=== PATIENT | female | born 1930 | race Caucasian/White ===

== ENCOUNTER 2017-05-06 05:49 | Inpatient (IN) | payer MEDICARE, OTHER ==
[2017-05-05 10:00] VITALS: BMI 20.3
--- NOTE | 2017-05-06 06:05 | HP ---
HISTORY OF PRESENT ILLNESS: Ms. Razo is an 86-year-old female that presents with low back pain and radicular pain in the right leg that travels to the heel and bottom of foot. The pain in the leg has been going on for the past year. The pain has been worse with lifting and walking, and has been made somewhat better with bending forward and sitting down as well as taking gabapentin and analgesics. She can only walk about a block and then the pain in the leg becomes too bad to continue walking. At that point, she needs to sit down to relieve the pain. She has had epidural steroid injections last year in [facility] and has completed physical therapy within the past year. She has a history of lumbar laminectomy in [address] Roach at [facility]. IMAGING: MRI of the lumbar spine from [facility]. REVIEW OF SYSTEMS: Ten-point review of systems completed, is otherwise negative unless stated in the above HPI. PAST MEDICAL HISTORY: Back pain. PAST SURGICAL HISTORY: Cervical pain in 2008, lumbar laminectomy in 2006, vascular surgery in 2006, right knee replaced in 2012. HOSPITALIZATIONS: For sciatica in 2017. FAMILY HISTORY: Noncontributory. SOCIAL HISTORY: The patient is a nonsmoker. She is retired, has 4 children, and she is . MEDICATIONS: Taking amlodipine, carvedilol, atorvastatin, calcium, losartan, potassium, Ecotrin, low-strength aspirin, tramadol, gabapentin, acetaminophen, lidocaine. ALLERGIES: No known drug allergies. PHYSICAL EXAMINATION: HEENT: Normocephalic, atraumatic. Hearing intact. Moist mucous membranes. Trachea is midline. EYES: Pupils are equal and reactive to light. Extraocular muscles are intact. Sclerae are white, nonicteric. PSYCHIATRIC: Normal mood and affect. CARDIOVASCULAR/PULMONARY: No cyanosis or clubbing noted. Intact pedal pulses bilaterally. RESPIRATORY: Even respirations, good effort. All lung zamora sound clear with no wheezing or crackles. MUSCULOSKELETAL: 5/5 strength in bilateral iliopsoas, quadriceps, hamstrings, right tibialis, anterior and extensor hallucis longus. Sensory deficit in the right L5 and S1 dermatome. Tender to palpation on the midline lumbar spine. NEUROLOGIC: Gait and station are normal. Motor exam: No new weakness. Sensory exam: No new loss of sensation. Cranial nerves II-XII are grossly intact. Speech is fluent. She answers my questions appropriately. IMAGING: Flexion and extension x-rays showed the L3-L4 grade II slip does not have changed much. The L2-L3 retrolisthesis accentuates on extension and reduces in flexion. MRI of the lumbar spine shows stenosis at L2-L3 and L3-L4, prior surgery at L5 scoliosis. ASSESSMENT: 1. Neurogenic claudication due to lumbar spinal stenosis. 2. Spondylolisthesis in the lumbar region. 3. Prior surgery at L5, S1 radiculopathy on the right, listhesis with severe stenosis at L2-L3 and L3-L4, mobile at L2-L3. PLAN: The patient is unwilling to continue life in this manner of pain, she is a 86-year-old. She opted for neurosurgical intervention. Informed consent was given and we discussed the indications, risks, benefits, and possible complications of surgery. Risks included, but were not limited to bleeding, infection, CSF leak, nerve damage, weakness, cauda equina injury, incontinence, arachnoiditis, paralysis, ventilator dependence, wheelchair dependence, loss of vision, hardware misplacement, cardiopulmonary complications with anesthesia, or . Long-term complications were discussed included, but were not limited to degeneration of the surrounding disk and future surgery. She understands the risk and is willing to proceed with the surgery. The patient will likely need rehab after admission. Surgery offered is L2-L4 laminectomy and TLIF. DEA
[2017-05-06] MEDS ORDERED: Thrombin 5000 UNITS/5 ML VIAL ONE ×2 (06:24)
[2017-05-06] MEDS ORDERED: Bupivacaine HCl 0.5%/Epinephrine 1:200,000/PF 30 ml Vial ONE (06:24)
[2017-05-06] MEDS ORDERED: Sodium Chloride 0.9% 20 ML ONE ×2 (06:24→12:04)
[2017-05-06] MEDS ORDERED: CEFAZOLIN/Water 2 GM/20 ML SYRINGE ONE (06:30)
[2017-05-06 06:34] LABS: Hemoglobin 14.1 g/dL (12.0-16.0); Mean Corpuscular HGB CONC 34.3 g/dL (32.0-36.0); Mean Corpuscular Hemoglobin 31.9 pg (27.0-31.0); Mean Corpuscular Volume 93.1 fl (81.0-99.0); Mean Platelet Volume 6.9 fL (7.4-10.4); Platelet Count 258 thou/uL (130-400); RBC Distribution Width 11.9 % (11.5-14.5); Red Blood Cell (RBC) Count 4.41 mill/uL (4.20-5.40); White Blood Cell (WBC) Count 8.1 thou/uL (4.8-10.8)
[2017-05-06 06:42] LABS: PTT 28.4 SEC (22.9-36.1)
[2017-05-06] MEDS ORDERED: Albumin 5% 500 ML ONE (07:01)
[2017-05-06] MEDS ORDERED: Phenylephrine HCL 10 MG/ML VIAL ONE (07:01)
[2017-05-06] MEDS ORDERED: Fentanyl 250 MCG/5 ML VIAL ONE ×2 (07:04→15:28)
[2017-05-06] MEDS ORDERED: HYDROmorphone 0.5 MG/0.5 ML SYRINGE ONE (13:13)
[2017-05-06] MEDS ORDERED: Morphine Sulfate 2 MG/ML SYRINGE SLOW IVP PRN (13:18)
[2017-05-06] MEDS ORDERED: Promethazine HCl 25 MG/ML VIAL SLOW IVP PRN (13:18)
[2017-05-06] MEDS ORDERED: Ondansetron HCl/PF 4 MG/2 ML Vial IVP PRN ×2 (13:18→14:28)
[2017-05-06] MEDS ORDERED: Meperidine HCl/PF 25 MG/ML VIAL SLOW IVP PRN (13:18)
[2017-05-06] MEDS ORDERED: HYDROmorphone 2 MG/ML VIAL SLOW IVP PRN (13:18)
[2017-05-06] MEDS ORDERED: Promethazine HCl 25 MG/ML VIAL IM PRN (13:18)
[2017-05-06] MEDS ORDERED: Acetaminophen/Codeine 30-300mg Tablet PO PRN (14:28)
[2017-05-06] MEDS ORDERED: tiZANidine HCl 4 MG TAB PO PRN (14:28)
[2017-05-06] MEDS ORDERED: Morphine 2 MG/ML SYRINGE SLOW IVP PRN (14:28)
[2017-05-06] MEDS ORDERED: Polyethylene Glycol 3350 17 GM Packet PO PRN (14:31)
[2017-05-06] MEDS ORDERED: Docusate 100 MG CAP PO PRN (14:35)
[2017-05-06] MEDS ORDERED: Metoclopramide HCl 10 MG/2 ML VIAL ONE ×2 (14:41→17:28)
[2017-05-06] MEDS ORDERED: CEFAZOLIN/Water 2 GM/20 ML SYRINGE SLOW IVP SCH (15:00)
--- NOTE | 2017-05-06 15:54 | OP ---
DATE OF PROCEDURE: 05/06/2017 SURGEON: Jillian Menon M.D. CHECK SERVICES CLERK: Taco Jaimes PA-C. PREOPERATIVE INDICATION: Treat pain, prevent neurological deterioration. PREOPERATIVE DIAGNOSES: Unstable spondylolisthesis L2-3, grade 2 spondylolisthesis L3-4, multilevel lumbar restenosis after previous surgery L2-3, L3-4, L4-L5, and neurogenic claudication. POSTOPERATIVE DIAGNOSES: Unstable spondylolisthesis L2-3, grade 2 spondylolisthesis L3-4, multilevel lumbar restenosis after previous surgery L2-3, L3-4, L4-L5, and neurogenic claudication. OPERATIVE PROCEDURE: Reopening lumbar incision, decompressive laminectomy, medial facetectomy, mary inotomy L2-L3, redo decompression bilateral L3-4 and L4-5, repair of multiple durotomies, pedicle scr ew and parker instrumentation L2-L4, posterolateral arthrodesis L2-L4, operating microscope, local zazueta lized autograft, morselized allograft. PREOPERATIVE MEDICATION: Ancef 2 grams IV. DRAIN NUMBER: Zero. DRAIN TYPE: None. OPERATIVE DICTATION: The patient was brought to the operating room. General endotracheal anesthesia was induced. The patient was positioned prone on the Joao frame and a lateral fluoro radiograph was used to confirm that previous incision would give us access from L2-S1. The lumbar skin was ster ilely prepped and draped. We opened with a 10-blade knife and controlled bleeding with bipolar and m onopolar cautery. We used monopolar cautery to dissect through subcutaneous tissues to thoracodorsal fascia. We incised the fascia in the midline and reflected the paraspinal muscles off the spinous p rocess and lamina of L2 with L3 and L4. We dissected through scar tissue laterally to the pars inter articularis and over the facet joints at L3-4, L4-5 and the same dissection technique was used down t he pars to the L5-S1 facet joint. A lateral fluoro radiograph confirmed the levels upon which we wer e operating. We placed self-retaining retractors. We dissected over the facet joints at L1-L2, L2-3 , and L3-4 to identify the transverse processes of L2, L3, and L4. Using an Adson rongeur, we remove d the spinous process of L2. We used Kerrison rongeur to fashion a laminectomy at L2 and we widened the laminectomy defect with L2-3 facet joints until we were flushed with the L3 pedicles. Dissected through scar tissue to identify the pars and articularis of L3, L4, and L5 bilaterally. We undermine d the pars with the angled curette. At L3-4 on the right side, there was a significant amount of sca r tissue and fatty tissue densely adherent to the dura, so it was used as a dural patch by the previo us surgeon. With mobilizing the dura off the lateral confines of the spinal canal, an opening of the dura was encountered on the right at L3-4, this is a complex opening owing to a previous patch closu re. The operative microscope was brought into the field. Under microscopic navigation using microsurgical techniques, we used 6-0 Prolene to reapproximate the dura and reinforced that closure with pledget of muscle. Continued our dissection until we were jc und the lateral aspect of the dura at the L3, L4, and L5 segments. We performed small foraminotomies over the exiting L3, L4, and L5 and made sure they were well decompressed. The spine had a lateral listhesis at L3-4 and there was a significant scoliotic curve as well. Under the operating microscop e, we found multiple smaller dural openings that needed repair with 6-0 Prolene, and due to the fragi lity of her dura and 86 years old, we elected to forego interbody grafting due to the tension we woul d have to put on the dura to get the interbodies in place. We removed the operating microscope. Usi ng bony anatomic landmarks, palpation of the medial portion of the pedicles, and a lateral fluoro rad iograph as a guide, we chose entry points for pedicle screws at L2, L3, and L4. We drilled the executive pilot holes with a high-speed drill and using a bone all advanced through the pedicles into the vertebral body. We tapped the trajectories and then probed them with a micro-ball probe. They were completely encased in bone. We placed 6.5 mm diameter pedicle screws at L2, L3, and L4 bilaterally. We genera andree a 360-degree image set using our isocentric C-arm confirming adequate position of the pedicle scr ew instrumentation. We then brought rods into the heads of the screws and tightened caps over the ro ds using a [id number] mechanism; we ensured adequate tightness. We irrigated copious with bacitracin irrigation. We decorticated the transverse processes from L2-L4 bilaterally, and over th e decorticated bone, we left demineralized bone matrix and morselized autograft as our posterolateral fusion substrate. The autograft was obtained from our laminectomy bone, which was cleaned of their soft tissue attachments on the back table, morselized into DBM as our fusion substrate. We turned ou r attention to the dura once again. We inspected for any further CSF egress. It is a small amount i n the stitch holes. We created and there is no way to combat the fragility of the dura other than us ing a DuraSeal tissue sealants. A 25 mL syringes of DuraSeal tissue sealant was applied to all of th e decompressed area, especially where there were openings had been repaired. This was done after irr igating with bacitracin irrigation. Vancomycin powder was used to treat the wound, and we closed the wound in anatomic layers. This is a clean case, no contamination and much longer and arduous than t he average decompression fusion.
[2017-05-06] MEDS: Sodium Chloride 0.9% 1,000 ML IV SCH (16:41)
[2017-05-06] MEDS: Gabapentin 100 MG CAP PO SCH ×2 (16:42→20:15)
[2017-05-06] MEDS ORDERED: Melatonin 3 MG TAB PO PRN (16:49)
[2017-05-06] MEDS ORDERED: CEFAZOLIN 1 GM VIAL ONE (17:28)
[2017-05-06] MEDS ORDERED: PHENYLEPHRINE-NS 100 MCG/ML 10 ML SYRINGE ONE (17:28)
[2017-05-06] MEDS ORDERED: Ondansetron HCl/PF 4 MG/2 ML Vial ONE (17:28)
[2017-05-06] MEDS ORDERED: Labetalol 100 MG/20 ML MDV ONE (17:28)
[2017-05-06] MEDS ORDERED: Lidocaine 1% PF 5 ML VIAL ONE (17:28)
[2017-05-06] MEDS ORDERED: Propofol 200 MG/20 ML VIAL ONE (17:28)
[2017-05-06] MEDS ORDERED: Glycopyrrolate 0.2 MG/ML 5 ML SYRINGE ONE (17:28)
[2017-05-06] MEDS ORDERED: Sterile Water 10 ML VIAL ONE (17:28)
--- NOTE | 2017-05-06 17:41 | PDOC.PN ---
- Subjective Encounter Start Date: 05/06/17 Encounter Start Time: 17:00 Subjective: no trouble breathing or chest pain -: is hungry, waiting for food to arrive -: is moving all extremities - Objective MAR Reviewed: Yes Vital Signs & Weight: Vital Signs (12 hours) Temp Pulse Resp BP Pulse Ox 05/06/17 16:20 97.5 F L 75 18 180/65 H 99 05/06/17 16:00 97.5 F L 75 18 99 Weight Weight 130 lb Result Diagrams: 05/06/17 06:25 Phys Exam - Physical Examination HEENT: PERRLA, moist MMs Neck: no JVD, supple Respiratory: no wheezing, no rales Cardiovascular: RRR, no significant murmur Gastrointestinal: soft, non-tender, no distention, positive bowel sounds Musculoskeletal: no edema, pulses present Neurological: non-focal, moves all 4 limbs Psychiatric: A&O x 3 Dx/Plan (1) S/P laminectomy Code(s): Z98.890 - OTHER SPECIFIED POSTPROCEDURAL STATES Status: Acute Comment: had decompressive lami with foraminotomy of L2-3, L3-4 with dural repair 05/06/17 (2) HTN (hypertension) Code(s): I10 - ESSENTIAL (PRIMARY) HYPERTENSION Status: Chronic Qualifiers: Hypertension type: essential hypertension Qualified Code(s): I10 - Essential (primary) hypertension (3) Dyslipidemia Code(s): E78.5 - HYPERLIPIDEMIA, UNSPECIFIED Status: Chronic - Plan continue coreg, norvasc and cozaar for now -: dc hctz, is on iv fluids -: is fully oriented post op, unlikely to develop post op delerium/dementia -: PT per NSX, rehab for dc plan -: for pain: morphine, tylenol#3, ultram and tizanidine prn * . Review of Systems - Medications/Allergies Allergies/Adverse Reactions: Allergies Allergy/AdvReac Type Severity Reaction Status Date / Time No Known Allergies Allergy Unverified 05/05/17 09:26 Medications: Current Medications Acetaminophen/Codeine Phosphate (Tylenol #3) 1 tab PO Q3H PRN PRN Reason: Mild Pain (1-3) Acetaminophen/Codeine Phosphate (Tylenol #3) 2 tab PO Q3H PRN PRN Reason: Moderate Pain (4-6) Amlodipine Besylate (Norvasc) 5 mg PO DAILY [facility] Atorvastatin Calcium (Lipitor) 10 mg PO Q3DAYS [facility] Carvedilol (Coreg) 12.5 mg PO BID [facility] Cefazolin Sodium (Ancef) 2 gm SLOW IVP 0400,1200,2000 [facility] Stop: 05/07/17 04:01 Docusate Sodium (Colace) 100 mg PO BIDPRN PRN PRN Reason: Constipation Gabapentin (Neurontin) 300 mg PO HS [facility] Gabapentin (Neurontin) 100 mg PO TID [facility] Last Admin: 05/06/17 16:42 Dose: Not Given Hydrochlorothiazide (Hydrochlorothiazide) 12.5 mg PO QAM [facility] Sodium Chloride (Normal Saline 0.9%) 1,000 mls @ 75 mls/hr IV .[id number] [facility] Last Admin: 05/06/17 16:41 Dose: Not Given Losartan Potassium (Cozaar) 100 mg PO DAILY [facility] Magnesium Oxide (Magnesium Oxide) 400 mg PO DAILY [facility] Melatonin (Melatonin) 9 mg PO HS PRN PRN Reason: Sedation Morphine Sulfate (Morphine) 2 mg SLOW IVP Q1H PRN PRN Reason: Moderate Breakthrough Pain Morphine Sulfate (Morphine Sulfate) 4 mg SLOW IVP Q1H PRN PRN Reason: Severe Breakthrough Pain Ondansetron HCl (Zofran) 4 mg IVP Q6H PRN PRN Reason: Nausea Polyethylene Glycol (Miralax) 17 gm PO DAILYPRN PRN PRN Reason: Constipation Sodium Chloride (Flush - Normal Saline) 10 ml IVF PRN PRN PRN Reason: Saline Flush Tizanidine HCl (Zanaflex) 4 mg PO Q6H PRN PRN Reason: Muscle Spasm Tramadol HCl (Ultram) 50 mg PO QID [facility]
[2017-05-06] MEDS: traMADol HCl 50 MG TAB PO SCH ×2 (18:04→20:16)
[2017-05-06] MEDS: CEFAZOLIN/Water 2 GM/20 ML SYRINGE SLOW IVP SCH (20:14)
[2017-05-06] MEDS: Carvedilol 6.25 MG TAB PO SCH (20:15)
[2017-05-06] MEDS: Gabapentin 300 MG CAP PO SCH (20:15)
[2017-05-06] MEDS: Acetaminophen/Codeine 30-300mg Tablet PO PRN (20:15)
[2017-05-07] MEDS: Acetaminophen/Codeine 30-300mg Tablet PO PRN ×2 (03:15→17:15)
[2017-05-07] MEDS: Sodium Chloride 0.9% 1,000 ML IV SCH (04:01)
[2017-05-07] MEDS: CEFAZOLIN/Water 2 GM/20 ML SYRINGE SLOW IVP SCH (04:59)
[2017-05-07 05:54] LABS: #Lymphocytes 1.1 thou/uL (1.20-3.40); #Monocytes 0.8 thou/uL (0.11-0.59); #Neutrophils 4.2 thou/uL (1.40-6.50); %Basophils 0.2 % (0.0-1.0); %Eosinophils 0.2 % (0.0-10.0); %Lymphocytes 17.5 % (21.0-51.0); %Monocytes 12.6 % (0.0-10.0); %Neutrophils 69.5 % (42.0-75.0); Hemoglobin 7.8 g/dL (12.0-16.0); Mean Corpuscular HGB CONC 33.1 g/dL (32.0-36.0); Mean Corpuscular Hemoglobin 32.1 pg (27.0-31.0); Mean Corpuscular Volume 96.9 fl (81.0-99.0); Mean Platelet Volume 7.5 fL (7.4-10.4); Platelet Count 167 thou/uL (130-400); RBC Distribution Width 11.8 % (11.5-14.5); Red Blood Cell (RBC) Count 2.44 mill/uL (4.20-5.40)
[2017-05-07] MEDS ORDERED: Acetaminophen 325 MG TAB PO PRN (07:15)
[2017-05-07] MEDS ORDERED: Loperamide HCl 2 MG CAP PO PRN (07:15)
[2017-05-07] MEDS ORDERED: Diabetic Tussin 200 MG/10 ML UDCUP PO PRN (07:15)
[2017-05-07] MEDS ORDERED: Sodium Chloride 0.65% Nasal 44 ML BOT EA NARE PRN (07:15)
[2017-05-07] MEDS ORDERED: Eucerin (Mineral Oil/Petrolatum,White) 30 gm Jar TOP PRN (07:15)
[2017-05-07] MEDS ORDERED: Zolpidem Tartrate 5 MG TAB PO PRN (07:15)
[2017-05-07] MEDS ORDERED: Bisacodyl 10 MG SUPP PR PRN (07:15)
[2017-05-07] MEDS ORDERED: Chloraseptic Spray 180 ml Bottle PO PRN (07:15)
[2017-05-07] MEDS ORDERED: hydrALAZINE 20 MG/ML VIAL SLOW IVP PRN (07:15)
[2017-05-07] MEDS ORDERED: Mag-Al 1200 mg/1200 mg/30 ML UDCUP PO PRN (07:15)
[2017-05-07] MEDS ORDERED: Artificial Tears 18 DROP/0.9 ML EA EYE PRN (07:15)
[2017-05-07] MEDS ORDERED: Milk Of Magnesia 30 ML UDCUP PO PRN (07:15)
[2017-05-07] MEDS ORDERED: Ondansetron ODT 4 MG TAB PO PRN (07:15)
[2017-05-07] MEDS ORDERED: Loratadine 10 MG TAB PO PRN (07:15)
[2017-05-07 08:04] LABS: Hemoglobin 7.7 g/dL (12.0-16.0)
[2017-05-07] MEDS: traMADol HCl 50 MG TAB PO SCH ×4 (08:50→20:46)
[2017-05-07] MEDS: Carvedilol 6.25 MG TAB PO SCH ×2 (08:50→20:44)
[2017-05-07] MEDS: Magnesium Oxide 400 MG TAB PO SCH (08:54)
[2017-05-07] MEDS: Famotidine 20 MG TAB PO SCH ×2 (08:54→20:45)
[2017-05-07] MEDS: Gabapentin 100 MG CAP PO SCH ×3 (08:55→20:38)
[2017-05-07] MEDS: Losartan 25 MG TAB PO SCH (08:57)
[2017-05-07] MEDS ORDERED: Amlodipine 5 MG TAB PO SCH ×2 (09:00→21:00)
[2017-05-07] MEDS ORDERED: Hydrochlorothiazide 25 MG TAB PO SCH (09:00)
--- NOTE | 2017-05-07 09:20 | PDOC.PN ---
- Subjective Encounter Start Date: 05/07/17 Encounter Start Time: 08:00 -: old records requested/rev Patient seen and examined. No new complaints. No overnight events has chronic low back pain no constipation no fever - Objective Resuscitation Status: Resuscitation Status FULL:Full Resuscitation MAR Reviewed: Yes Vital Signs & Weight: Vital Signs (12 hours) Temp Pulse Resp BP BP Pulse Ox 05/07/17 08:53 80 148/66 H 05/07/17 08:50 148/66 H 05/07/17 08:23 98.8 F 80 16 148/66 H 96 05/07/17 04:00 97.6 F 81 18 122/46 L 98 Weight Weight 130 lb I&O: 05/06/17 05/07/17 05/08/17 06:59 06:59 06:59 Intake Total 1775 Output Total 1500 Balance 275 Result Diagrams: 05/07/17 07:33 Phys Exam - Physical Examination Constitutional: NAD HEENT: PERRLA, moist MMs, sclera anicteric, oral pharynx no lesions Neck: no nodes, no JVD, supple, full ROM Respiratory: no wheezing, no rales, no rhonchi Cardiovascular: RRR, no significant murmur, no rub Gastrointestinal: soft, non-tender, no distention, positive bowel sounds Musculoskeletal: no edema, pulses present Neurological: non-focal, normal sensation, moves all 4 limbs Lymphatic: no nodes Psychiatric: normal affect, A&O x 3 Skin: no rash, normal turgor Dx/Plan (1) Lumbar stenosis with neurogenic claudication Code(s): M48.062 - SPINAL STENOSIS, LUMBAR REGION WITH NEUROGENIC CLAUDICATION Status: Acute (2) S/P laminectomy Code(s): Z98.890 - OTHER SPECIFIED POSTPROCEDURAL STATES Status: Acute Comment: had decompressive lami with foraminotomy of L2-3, L3-4 with dural repair 05/06/17 (3) Chronic low back pain Code(s): M54.5 - LOW BACK PAIN; G89.29 - OTHER CHRONIC PAIN Status: Chronic (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 Code(s): M47.816 - SPONDYLOSIS W/O MYELOPATHY OR RADICULOPATHY, LUMBAR REGION Status: Chronic Qualifiers: Spinal osteoarthritis complication: with radiculopathy Qualified Code(s): M47.26 - Other spondylosis with radiculopathy, lumbar region (5) Dyslipidemia Code(s): E78.5 - HYPERLIPIDEMIA, UNSPECIFIED Status: Chronic (6) HTN (hypertension) Code(s): I10 - ESSENTIAL (PRIMARY) HYPERTENSION Status: Chronic Qualifiers: Hypertension type: essential hypertension Qualified Code(s): I10 - Essential (primary) hypertension - Plan cont current plan of care, plan discussed w/ family, PT/OT, pediatric social worker * continue PT/OT * will need rehab placement when surgically cleared * Her Hb most likely in 7- 8 range * doubt pt has any post surgical blood loss * on admission may be Hb result is false high * she does not have any bleeding from any site per pt * medication reviewed as below * symptomatic treatment * discussed with daughter * code status- full and daughter is decision maker. Review of Systems - Review of Systems Constitutional: negative: fever, chills, sweats, weakness, malaise, other Eyes: negative: Pain, Vision Change, Conjunctivae Inflammation, Eyelid Inflammation, Redness, Other ENT: negative: Ear Pain, Ear Discharge, Nose Pain, Nose Discharge, Nose Congestion, Mouth Pain, Mouth Swelling, Throat Pain, Throat Swelling, Other Respiratory: negative: Cough, Dry, Shortness of Breath, Hemoptysis, SOB with Excertion, Pleuritic Pain, Sputum, Wheezing Cardiovascular: negative: chest pain, palpitations, orthopnea, paroxysmal nocturnal dyspnea, edema, light headedness, other Gastrointestinal: negative: Nausea, Vomiting, Abdominal Pain, Diarrhea, Constipation, Melena, Hematochezia, Other Genitourinary: negative: Dysuria, Frequency, Incontinence, Hematuria, Retention , Other Musculoskeletal: Back Pain. negative: Neck Pain, Shoulder Pain, Arm Pain, Hand Pain, Leg Pain, Foot Pain, Other Skin: negative: Rash, Lesions, Wes, Bruising, Other - Medications/Allergies Allergies/Adverse Reactions: Allergies Allergy/AdvReac Type Severity Reaction Status Date / Time No Known Allergies Allergy Unverified 05/05/17 09:26 Medications: Current Medications Acetaminophen (Tylenol) 650 mg PO Q4H PRN PRN Reason: Headache/Fever or Mild Pain Acetaminophen/Codeine Phosphate (Tylenol #3) 1 tab PO Q3H PRN PRN Reason: Mild Pain (1-3) Last Admin: 05/07/17 03:15 Dose: 1 tab Acetaminophen/Codeine Phosphate (Tylenol #3) 2 tab PO Q3H PRN PRN Reason: Moderate Pain (4-6) Al Hydroxide/Mg Hydroxide (Maalox) 15 ml PO Q4H PRN PRN Reason: Heartburn or Indigestion Amlodipine Besylate (Norvasc) 5 mg PO DAILY [facility] Last Admin: 05/07/17 08:53 Dose: Not Given Artificial Tears (Tears Naturale) 0 drop EA EYE PRN PRN PRN Reason: Dry Eyes Atorvastatin Calcium (Lipitor) 10 mg PO Q3DAYS [facility] Bisacodyl (Dulcolax) 10 mg AK DAILYPRN PRN PRN Reason: Constipation Carvedilol (Coreg) 12.5 mg PO BID [facility] Last Admin: 05/07/17 08:50 Dose: 12.5 mg Docusate Sodium (Colace) 100 mg PO BIDPRN PRN PRN Reason: Constipation Famotidine (Pepcid) 20 mg PO BID [facility] Last Admin: 05/07/17 08:54 Dose: 20 mg Gabapentin (Neurontin) 300 mg PO HS [facility] Last Admin: 05/06/17 20:15 Dose: 300 mg Gabapentin (Neurontin) 100 mg PO TID [facility] Last Admin: 05/07/17 08:55 Dose: 100 mg Guaifenesin (Robitussin Sf) 200 mg PO Q4H PRN PRN Reason: Cough Hydralazine HCl (Apresoline) 10 mg SLOW IVP Q4H PRN PRN Reason: Systolic BP > 180 Loperamide HCl (Imodium) 2 mg PO PRN PRN PRN Reason: Diarrhea/Loose Stools Loratadine (Claritin) 10 mg PO DAILYPRN PRN PRN Reason: Sinus Symptoms Losartan Potassium (Cozaar) 100 mg PO DAILY [facility] Last Admin: 05/07/17 08:57 Dose: 100 mg Magnesium Hydroxide (Milk Of Magnesium) 30 ml PO DAILYPRN PRN PRN Reason: Constipation Magnesium Oxide (Magnesium Oxide) 400 mg PO DAILY [facility] Last Admin: 05/07/17 08:54 Dose: 400 mg Melatonin (Melatonin) 9 mg PO HS PRN PRN Reason: Sedation Mineral Oil/White Petrolatum (Eucerin Cream) 0 gm TOP BIDPRN PRN PRN Reason: Dry Skin Morphine Sulfate (Morphine) 2 mg SLOW IVP Q1H PRN PRN Reason: Moderate Breakthrough Pain Morphine Sulfate (Morphine Sulfate) 4 mg SLOW IVP Q1H PRN PRN Reason: Severe Breakthrough Pain Ondansetron HCl (Zofran) 4 mg IVP Q6H PRN PRN Reason: Nausea Ondansetron HCl (Zofran Odt) 4 mg PO Q6H PRN PRN Reason: Nausea/Vomiting Phenol (Chloraseptic [place] 180 Ml Bot) 0 ml PO PRN PRN PRN Reason: Sore Throat Polyethylene Glycol (Miralax) 17 gm PO DAILYPRN PRN PRN Reason: Constipation Sodium Chloride (Flush - Normal Saline) 10 ml IVF PRN PRN PRN Reason: Saline Flush Last Admin: 05/06/17 20:14 Dose: 10 ml Sodium Chloride (Imperial Nasal [place] 0.65%) 0 ml EA NARE QIDPRN PRN PRN Reason: Nasal Congestion Tizanidine HCl (Zanaflex) 4 mg PO Q6H PRN PRN Reason: Muscle Spasm Last Admin: 05/06/17 20:14 Dose: 4 mg Tramadol HCl (Ultram) 50 mg PO QID [facility] Last Admin: 05/07/17 08:50 Dose: 50 mg Zolpidem Tartrate (Ambien) 5 mg PO HSPRN PRN PRN Reason: Insomnia
--- NOTE | 2017-05-07 10:41 | PRG ---
DATE OF SERVICE: 05/07/2017 Ms. Razo is 1 day out from lumbar decompression and fusion. Her surgery was extremely arduous. H er 86-year-old dura had the consistency of tissue paper. There were multiple durotomies that needed repair. It seemed as though at C3-4 she had a previous graft repair of her dura during her original operation and that needed to be repaired once again as well. Nerves within the thecal sac was scarr ed in from her degenerative spine disease and the previous surgery and they had to be freed microscop ically. Overnight, Ms. Razo has been flat in bed. She says the pain in her right leg is better than it wa s before surgery. Her back pain is not any worse than what she had prior to her operation and she is pleased that she had it. On examination, there is good neurological function in lower extremities. We will gradually raise th e head of bed today. By this afternoon, she can stand with the assistance of Physical Therapy. She may benefit from inpatient rehabilitation.
--- NOTE | 2017-05-07 11:04 | PRG ---
DATE OF SERVICE: 05/07/2017 Ms. Razo is an 86-year-old female, who is status post 1 day from an L2-L4 laminectomy and TLIF. T jaky, she has a lumbar brace in her room and she has been able to get up to the bathroom. We will gavin ve physical therapy work with her today and occupational therapy to get her walking in her room and i n the mohan. I have put in consults for case management to consider a rehab screening. This patient will likely need some inpatient rehab post hospitalization. This morning, her laboratory count, hemo globin was 7.7. Her vital signs overnight were stable. She is slightly hypertensive at 148/66. She is afebrile and she has been able to tolerate a regular diet. Her pain is well controlled with oral pain medication. If there are any further questions, please feel free to contact Neurosurgery.
[2017-05-07] MEDS: Gabapentin 300 MG CAP PO SCH (20:45)
--- NOTE | 2017-05-08 07:28 | PRG ---
DATE OF SERVICE: 05/08/2017 Ms. Razo is 2 days out from decompression fusion lumbar spine. She had significant number of clem tomies given a paper thin dura and previous surgery involving what was likely a patch graft to fix he r dura the first time. Nonetheless, in spite of her 86 years of age, her protracted surgery and the difficulty of the operation, she continues to do remarkably well. She was standing yesterday. The n erve pain in her right leg is completely gone and she is very grateful for that. Her back is sore, a s I would expect. I see a fever of 100.2 degrees Fahrenheit recorded. I do not find any new neurolo gical deficits in the lower extremities. My plan is to continue to mobilize Ms. Razo. I think her back will be sore today and a little bit more sore tomorrow and after that she will start making some improvements in her pain. She would be a good candidate for inpatient rehabilitation.
--- NOTE | 2017-05-08 07:33 | PRG ---
DATE OF SERVICE: 05/08/2017 Ms. Razo is an 86-year-old female who is status post L2-L4 laminectomy and fusion day 2. She is d oing very well in her room this morning resting comfortably. Pain is well controlled with pain medic ation. She is able to eat and tolerate a regular diet and she has been able to ambulate with an LSO brace on. We are currently waiting disposition from case management in regards to inpatient rehab. Choice letter has been signed and referral has been made. Her vital signs overnight have been stable with a T-max of 100.2. She is somewhat hypertensive at 14 . She should continue to work with physical therapy throughout the day and ambulate as much as p ossible. We will continue to await disposition from case management for rehab. If there are any further questions, please feel free to contact Neurosurgery.
[2017-05-08] MEDS: Losartan 25 MG TAB PO SCH (09:00)
[2017-05-08] MEDS: Magnesium Oxide 400 MG TAB PO SCH (09:00)
[2017-05-08] MEDS: traMADol HCl 50 MG TAB PO SCH ×2 (09:01→14:23)
[2017-05-08] MEDS: Carvedilol 6.25 MG TAB PO SCH (09:01)
[2017-05-08] MEDS: Gabapentin 100 MG CAP PO SCH (09:02)
[2017-05-08] MEDS: Famotidine 20 MG TAB PO SCH (09:02)
--- NOTE | 2017-05-08 09:14 | PDOC.PN ---
- Subjective Encounter Start Date: 05/08/17 Encounter Start Time: 07:50 Patient seen and examined. No new complaints. No overnight events - Objective Resuscitation Status: Resuscitation Status FULL:Full Resuscitation MAR Reviewed: Yes Vital Signs & Weight: Vital Signs (12 hours) Temp Pulse Resp BP BP Pulse Ox 05/08/17 09:01 156/66 H 05/08/17 07:15 97.7 F 81 16 156/52 H 96 05/08/17 04:31 98.0 F 80 16 146/52 H 97 05/08/17 00:15 100.2 F H 93 16 150/60 H 96 Weight Weight 130 lb I&O: 05/07/17 05/08/17 05/09/17 06:59 06:59 06:59 Intake Total 1775 1440 Output Total 1500 Balance 275 1440 Result Diagrams: 05/07/17 07:33 Phys Exam - Physical Examination Constitutional: NAD HEENT: PERRLA, moist MMs, sclera anicteric Neck: no JVD, supple Respiratory: no wheezing, no rales, no rhonchi Cardiovascular: RRR, no significant murmur, no rub Gastrointestinal: soft, non-tender, no distention, positive bowel sounds Musculoskeletal: no edema, pulses present Neurological: non-focal, normal sensation Lymphatic: no nodes Psychiatric: normal affect, A&O x 3 Skin: no rash, normal turgor Dx/Plan (1) Lumbar stenosis with neurogenic claudication Code(s): M48.062 - SPINAL STENOSIS, LUMBAR REGION WITH NEUROGENIC CLAUDICATION Status: Acute (2) S/P laminectomy Code(s): Z98.890 - OTHER SPECIFIED POSTPROCEDURAL STATES Status: Acute Comment: had decompressive lami with foraminotomy of L2-3, L3-4 with dural repair 05/06/17 (3) Chronic low back pain Code(s): M54.5 - LOW BACK PAIN; G89.29 - OTHER CHRONIC PAIN Status: Chronic (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 Code(s): M47.816 - SPONDYLOSIS W/O MYELOPATHY OR RADICULOPATHY, LUMBAR REGION Status: Chronic Qualifiers: Spinal osteoarthritis complication: with radiculopathy Qualified Code(s): M47.26 - Other spondylosis with radiculopathy, lumbar region (5) Dyslipidemia Code(s): E78.5 - HYPERLIPIDEMIA, UNSPECIFIED Status: Chronic (6) HTN (hypertension) Code(s): I10 - ESSENTIAL (PRIMARY) HYPERTENSION Status: Chronic Qualifiers: Hypertension type: essential hypertension Qualified Code(s): I10 - Essential (primary) hypertension - Plan cont current plan of care, PT/OT, [employer] * medication reviewed as below * symptomatic treatment * pain control * stable otherwise * will need rehab when surgically cleared. Review of Systems - Review of Systems Constitutional: negative: fever, chills, sweats, weakness, malaise, other ENT: negative: Ear Pain, Ear Discharge, Nose Pain, Nose Discharge, Nose Congestion, Mouth Pain, Mouth Swelling, Throat Pain, Throat Swelling, Other Respiratory: negative: Cough, Dry, Shortness of Breath, Hemoptysis, SOB with Excertion, Pleuritic Pain, Sputum, Wheezing Cardiovascular: negative: chest pain, palpitations, orthopnea, paroxysmal nocturnal dyspnea, edema, light headedness, other Gastrointestinal: negative: Nausea, Vomiting, Abdominal Pain, Diarrhea, Constipation, Melena, Hematochezia, Other Genitourinary: negative: Dysuria, Frequency, Incontinence, Hematuria, Retention , Other Musculoskeletal: Back Pain. negative: Neck Pain, Shoulder Pain, Arm Pain, Hand Pain, Leg Pain, Foot Pain, Other Skin: negative: Rash, Lesions, Wes, Bruising, Other - Medications/Allergies Allergies/Adverse Reactions: Allergies Allergy/AdvReac Type Severity Reaction Status Date / Time No Known Allergies Allergy Unverified 05/05/17 09:26 Medications: Current Medications Acetaminophen (Tylenol) 650 mg PO Q4H PRN PRN Reason: Headache/Fever or Mild Pain Acetaminophen/Codeine Phosphate (Tylenol #3) 1 tab PO Q3H PRN PRN Reason: Mild Pain (1-3) Last Admin: 05/07/17 17:15 Dose: 1 tab Acetaminophen/Codeine Phosphate (Tylenol #3) 2 tab PO Q3H PRN PRN Reason: Moderate Pain (4-6) Last Admin: 05/08/17 00:18 Dose: 2 tab Al Hydroxide/Mg Hydroxide (Maalox) 15 ml PO Q4H PRN PRN Reason: Heartburn or Indigestion Amlodipine Besylate (Norvasc) 5 mg PO HS [facility] [place] Last Admin: 05/07/17 20:45 Dose: 5 mg Artificial Tears (Tears Naturale) 0 drop EA EYE PRN PRN PRN Reason: Dry Eyes Atorvastatin Calcium (Lipitor) 10 mg PO Q3DAYS [facility] [place] Bisacodyl (Dulcolax) 10 mg VT DAILYPRN PRN PRN Reason: Constipation Carvedilol (Coreg) 12.5 mg PO BID [facility] [place] Last Admin: 05/08/17 09:01 Dose: 12.5 mg Docusate Sodium (Colace) 100 mg PO BIDPRN PRN PRN Reason: Constipation Famotidine (Pepcid) 20 mg PO BID [facility] [place] Last Admin: 05/08/17 09:02 Dose: 20 mg Gabapentin (Neurontin) 300 mg PO HS [facility] [place] Last Admin: 05/07/17 20:45 Dose: 300 mg Gabapentin (Neurontin) 100 mg PO TID [facility] [place] Last Admin: 05/08/17 09:02 Dose: 100 mg Guaifenesin (Robitussin Sf) 200 mg PO Q4H PRN PRN Reason: Cough Hydralazine HCl (Apresoline) 10 mg SLOW IVP Q4H PRN PRN Reason: Systolic BP > 180 Loperamide HCl (Imodium) 2 mg PO PRN PRN PRN Reason: Diarrhea/Loose Stools Loratadine (Claritin) 10 mg PO DAILYPRN PRN PRN Reason: Sinus Symptoms Losartan Potassium (Cozaar) 100 mg PO DAILY [facility] [place] Last Admin: 05/08/17 09:00 Dose: 100 mg Magnesium Hydroxide (Milk Of Magnesium) 30 ml PO DAILYPRN PRN PRN Reason: Constipation Magnesium Oxide (Magnesium Oxide) 400 mg PO DAILY [facility] [place] Last Admin: 05/08/17 09:00 Dose: 400 mg Melatonin (Melatonin) 9 mg PO HS PRN PRN Reason: Sedation Mineral Oil/White Petrolatum (Eucerin Cream) 0 gm TOP BIDPRN PRN PRN Reason: Dry Skin Morphine Sulfate (Morphine) 2 mg SLOW IVP Q1H PRN PRN Reason: Moderate Breakthrough Pain Morphine Sulfate (Morphine Sulfate) 4 mg SLOW IVP Q1H PRN PRN Reason: Severe Breakthrough Pain Ondansetron HCl (Zofran) 4 mg IVP Q6H PRN PRN Reason: Nausea Ondansetron HCl (Zofran Odt) 4 mg PO Q6H PRN PRN Reason: Nausea/Vomiting Phenol (Chloraseptic [place] 180 Ml Bot) 0 ml PO PRN PRN PRN Reason: Sore Throat Polyethylene Glycol (Miralax) 17 gm PO DAILYPRN PRN PRN Reason: Constipation Last Admin: 05/07/17 17:15 Dose: 17 gm Sodium Chloride (Flush - Normal Saline) 10 ml IVF PRN PRN PRN Reason: Saline Flush Last Admin: 05/06/17 20:14 Dose: 10 ml Sodium Chloride ([place] Nasal [place] 0.65%) 0 ml EA NARE QIDPRN PRN PRN Reason: Nasal Congestion Tizanidine HCl (Zanaflex) 4 mg PO Q6H PRN PRN Reason: Muscle Spasm Last Admin: 05/06/17 20:14 Dose: 4 mg Tramadol HCl (Ultram) 50 mg PO QID [facility] Last Admin: 05/08/17 09:01 Dose: 50 mg Zolpidem Tartrate (Ambien) 5 mg PO HSPRN PRN PRN Reason: Insomnia
[2017-05-08 11:27] VITALS: BP 151/71; TEMP 98.5
[2017-05-09] MEDS ORDERED: Atorvastatin Calcium 10 MG TAB PO SCH (09:00)
--- NOTE | 2017-05-09 09:46 | DIS ---
DATE OF ADMISSION: 05/06/2017 DATE OF DISCHARGE: 05/08/2017 PRIMARY CARE PHYSICIAN: Dr. Debbie Graff. PRIMARY ATTENDING: Dr. Sinan Tang. DISCHARGE DISPOSITION: Rehabilitation. PRIMARY DISCHARGE DIAGNOSIS: Status post laminectomy. SECONDARY DISCHARGE DIAGNOSES: Lumbar stenosis with neurogenic claudication, chronic low back pain, degenerative joint disease, dyslipidemia, hypertension. PRIMARY PROCEDURES/OPERATIONS: Laminectomy. RADIOLOGICAL INVESTIGATION: None. SIGNIFICANT LABORATORY: WBC 6.0, hemoglobin 7.7, platelets 167. INR 1.0. DISCHARGE MEDICATIONS: Tylenol #3 one or two tablets q.3 hourly p.r.n. for pain, amlodipine 5 mg p.o . daily, Lipitor 10 mg p.o. every 3 days, Coreg 12.5 mg p.o. b.i.d.; gabapentin 100 mg p.o. t.i.d. an d 300 mg p.o. at bedtime; hydrochlorothiazide 12.5 mg p.o. daily, losartan 100 mg p.o. daily, magnesi um oxide 400 mg p.o. daily, melatonin 10 mg p.o. at bedtime p.r.n., MiraLax 17 grams p.o. daily, [place] flex 4 mg p.o. q.6 hourly p.r.n., tramadol 50 mg q.i.d. p.r.n. CONTRAINDICATIONS: None. CODE STATUS: FULL CODE. INPATIENT CONSULTANTS: Dr. Menon was primary while in hospital. Sound team was consulted for sc dical comanagement. TEST RESULTS PENDING ON DISCHARGE: None. ALLERGIES: No known drug allergy. DISCHARGE PLAN: Post hospital, the patient is discharged to rehabilitation. Subsequently, patient w ill follow up with primary care physician and Dr. Menon as instructed. HOSPITAL COURSE: An 86-year-old female who has chronic low back pain and she has lumbar stenosis, irian mbar degenerative spine disease with a neurogenic claudication. She was admitted for laminectomy. P ost operation, the patient was admitted to surgical floor, Sound team was consulted for medical coman agement. The patient had some leakage around surgical site and that is why she stayed in hospital fo r a couple of days. She was having a lot of pain and she was not doing well with physical therapy an d that required her rehabilitation placement. While in hospital, we noted that her hemoglobin was 7. 7, that is her normal hemoglobin; 14.1 on admission may be falsely high. This patient did not have a ny blood loss with the operation and the patient did not have any kind of blood loss from any site. This patient was also asymptomatic while in hospital regarding her anemia. This patient will need fu rther evaluation as an outpatient basis. Patient was planned for discharge by primary team and mesfin vargas was discharged by primary team yesterday and we will sign off. The patient is seen and examined at bedside on that day. Please see my progress note from that date for further detail.
== END 2017-05-08 14:24 | DRG 460 ==
LOC: SURG A 05:49 → EDSTATUS 14:18 → SURG B 15:39
PROVIDERS: ADMIT Neurological Surgery; ATTEND Neurological Surgery
PROC: 0SG1071 Fusion of 2 or more Lumbar Vertebral Joints with Autologous Tissue Substitute, Posterior Approach, Posterior Column, Open Approach (ICD-10-PCS; principal; 2017-05-06)
PROC: 00NY0ZZ Release Lumbar Spinal Cord, Open Approach (ICD-10-PCS; 2017-05-06)
PROC: 00QT0ZZ Repair Spinal Meninges, Open Approach (ICD-10-PCS; 2017-05-06)
DX: M48.062 Spinal stenosis, lumbar region with neurogenic claudication (principal); M41.9 Scoliosis, unspecified; E78.5 Hyperlipidemia, unspecified; M43.16 Spondylolisthesis, lumbar region; M47.26 Other spondylosis with radiculopathy, lumbar region; I10 Essential (primary) hypertension
CPT/HCPCS: 36415; 76001; 85025; 85027; 85610; 85730; 93005; 93010; A4216; C1713; C1768; G8978-GP-CK; G8979-GP-CI; G8987-GO-CK; G8988-GO-CI; J0131; J0670; J0690; J1170; J2001; J2370; J2405; J2704; J2765; J3010; J3370; J3490; P9045